=== PATIENT | male | born 2000 | race African-American/Black ===

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

== ENCOUNTER 2023-03-04 20:18 | Emergency (ER) | payer OTHER ==
[2023-03-04 20:23] VITALS: BMI 23.8
[2023-03-04 22:06] LABS: BASO % 0.6 % (0-2.0); EOS % 1.2 % (0-4.5); HEMATOCRIT 44.5 % (35.4-49); HEMOGLOBIN 15.1 GM/dL (11.7-16.9); LYMPH % 30.5 % (8-40); MCH 29.6 pg (25.7-33.7); MEAN CELL VOLUME 86.9 fl (80-96); MEAN PLT VOLUME 8.2 fl (7.5-11.1); MONO % 9.4 % (3.8-10.2); NEUT % 58.3 % (42.8-82.8); PLATELET COUNT 249 10^3/uL (134-434); RBC 5.12 M/mm3 (4.00-5.60); RDW 13.2 % (11.9-15.9); WHITE BLOOD COUNT 5.5 K/mm3 (4.0-10.0)
[2023-03-04 22:28] LABS: CALCIUM 9.4 mg/dL (8.5-10.1)
[2023-03-04 22:29] LABS: ALBUMIN 4.5 g/dl (3.4-5.0); BLOOD UREA NITROGEN 16.6 mg/dL (7-18)
[2023-03-04 22:32] LABS: CREATININE 0.9 mg/dL (0.55-1.3)
[2023-03-04 22:33] LABS: BILIRUBIN,TOTAL 0.4 mg/dL (0.2-1); TOT PROT 7.7 g/dl (6.4-8.2)
[2023-03-04 23:14] VITALS: BP 110/68; PULSE 72; RESP 19; TEMP 97.9
== END 2023-03-04 23:14 | disposition home or self-care (01) ==
LOC: JERFT 20:18
DX: R07.9 Chest pain, unspecified (principal)
CPT/HCPCS: 36415; 71046-TC-FY; 80053; 84484; 85025; 93005; 93010; 99285-25